=== PATIENT | male | born 1935 | race Caucasian/White ===

== ENCOUNTER 2018-10-08 19:09 | Inpatient (IN) ==
[2018-10-08 19:47] LABS: Basophils # 0.1 K/mcL (0.0-0.2); Basophils % 0.3 %; Eosinophils % 0.1 %; Hematocrit 44.1 % (37.5-50.1); Hemoglobin 13.8 g/dL (12.9-16.9); Immature Granulocytes % 0.5 % (0-4); Lymphocytes # 1.2 K/mcL (0.6-4.6); Lymphocytes % 6.5 %; Mean Corpuscular HGB Conc 31.3 g/dL (31.6-35.5); Mean Corpuscular Hemoglobin 28.5 pg (28.0-33.3); Mean Corpuscular Volume 90.9 fL (83.0-100.0); Mean Platelet Volume 10.5 fL (9.4-12.4); Monocytes # 1.1 K/mcL (0.0-1.3); Monocytes % 6.3 %; Neutrophils # 15.6 K/mcL (1.6-8.9); Platelet Count 263 K/mcL (140-400); Red Blood Count 4.85 M/mcL (4.19-5.50); Segmented Neutrophils % 86.3 %
[2018-10-08] MEDS ORDERED: Ipratropium/Albuterol Neb 3 ML IH ONE (20:06)
[2018-10-08] MEDS ORDERED: Levofloxacin 750 MG/150 ML 750 MG/150 ML BAG IVPB ONE (20:06)
[2018-10-08] MEDS ORDERED: 0.9 % Sodium Chloride 1,000 ML IVC ONE (20:06)
[2018-10-08 20:09] LABS: BUN/Creatinine Ratio 24 (6-26); Blood Urea Nitrogen 25 mg/dL (8-23); Calcium 9.5 mg/dL (8.6-10.3); Carbon Dioxide 30 mEq/L (23-29); Chloride 100 mEq/L (98-107); Glucose 140 mg/dL (70-105); Osmolality,Calculated 297 (280-300); Potassium 4.1 mEq/L (3.5-5.1); Sodium 140 mEq/L (136-145); Troponin I 0.04 ng/mL (< 0.04); eGFR For Non-African Americans > 60 (> 60)
--- NOTE | 2018-10-08 20:09 | Emergency Department Note ---
Disposition Clinical Impression: Acute exacerbation of chronic obstructive airways disease Disposition: Admitted As Inpatient Condition: Fair Referrals: NONE,PCP [Primary Care Provider] - Forms: ED Satisfaction Letter Time of Disposition: 23:37 SOB HPI - General Chief Complaint: ED Shortness of Breath/Dyspnea Stated Complaint: Difficulty breathing Time Seen by Provider: 10/08/18 20:01 Source: patient, family, EMS Mode of arrival: EMS Limitations: no limitations Nursing Notes Reviewed: Yes Vital Signs Reviewed: Yes - History of Present Illness Pt Subjective Complaint: shortness of breath Onset (ago): day(s) (Past couple days.) Context: smoke/fume exposure (Bug spray sprayed around his house although shortness of breath started getting worse before that) Severity: severe Consistency/Duration: constant, gradually worsening Improves with: nothing (Patient has been increasing his oxygen at home without relief.) Worsens with: exertion Known history of: COPD Associated symptoms: Reports: cough Treatment prior to arrival: oxygen, bronchodilator, other (Steroids per EMS) Cough present: Yes - Related Data Home oxygen amount: 3 liters Previous Rx's Medication Instructions Recorded Ciprofloxacin HCl [Cipro] 500 mg PO Q12H #20 tablet 12/25/17 Michael/Poly/HC *EAR* SUSP 4 ml LEFT EAR QID #1 drops.susp 12/25/17 [Cortisporin *EAR* SUSP] Allergies Allergy/AdvReac Type Severity Reaction Status Date / Time Unable to Assess Allergy Unverified 10/08/18 19:22 All systems ED: reviewed and negative except as stated. Constitutional: Denies: fever, chills ENT ED: Denies: ear pain, throat pain, congestion Cardiovascular: Denies: chest pain, palpitations Respiratory: Reports: cough, dyspnea, wheezes Gastrointestinal: Denies: abdominal pain, nausea, vomiting, diarrhea Integumentary: Denies: rash Neurological: Denies: headache Past Medical History - Past Medical History Attestation: Yes The following information was validated with the patient. Source: patient, old records reviewed, obtained from family, nursing notes reviewed Medical history: Reports: non-contributory, COPD, hyperlipidemia Psychiatric history: Reports: no psych history - Social History Smoking Status: Former smoker Smokeless Tobacco Status: No Alcohol use: Reports: none Drug use: Reports: none Physical Exam - General Limitations: no limitations General appearance: alert, in distress - Head Head exam: atraumatic, normocephalic, normal inspection - Eye Eye exam: Present: normal appearance, PERRL, EOMI. Absent: scleral icterus, conjunctival injection - ENT ENT exam: normal exam, normal oropharynx, mucous membranes dry, normal external ear exam - Neck Neck exam: Present: normal inspection, full ROM, trachea midline. Absent: meningismus - Chest Chest inspection: Present: normal inspection, symmetric chest wall rise. Absent: tenderness - Respiratory Respiratory exam: Present: respiratory distress (Tachypnea), wheezes ( scattered bilaterally) - Cardiovascular Cardiovascular exam: Present: regular rate, normal rhythm, normal heart sounds - Abdominal Exam Abdominal exam: Present: soft, Non-Tender, normal bowel sounds - Extremities Exam Extremities exam: Present: normal inspection. Absent: tenderness, pedal edema, calf tenderness - Neurological Exam Neurological exam: Present: alert, oriented X3 - Psychiatric Psychiatric exam: Present: normal affect, normal mood - Skin Skin exam: Present: warm, dry. Absent: rash Course Course Narrative: Patient presents for shortness of breath. Long-standing history of COPD and on home oxygen. Suddenly started getting short of breath and sounds like some he was using some bug spray the house and I suspect that this is triggered things. He does not have any significant infectious disease symptoms although he has been coughing. There is no fever. His chest x-ray was clear without any evidence of infectious problem. He got breathing treatments and steroids by the squad. I am and even more breathing treatments. I will start him on some Levaquin. 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 - Reevaluation(s) Reevaluation #1: Patient feels better. Chest x-ray looks clear. So think is a bronchitis with bronchospasm. COPD exacerbation. He did have a slightly elevated troponin of 0.04. I repeated 3 hours later and it was 0.06. I think this is still all related to COPD exacerbation. I called the hospitalist and discussed the case with him. He is happy to accept the patient here for further evaluation. We are giving the patient Levaquin. He has had doing nebs and Solu-Medrol. He has had aspirin. Time: 23:37 - Consultations Consultation #1: Dr. Wilder, hospitalist - I discussed case with the hospice. He is except patient for admission. Time: 23:37 Vital Signs Temperature 98.2 F 10/08/18 19:10 Pulse Rate 98 10/08/18 19:10 Respiratory Rate 29 10/08/18 19:10 Blood Pressure 168/69 10/08/18 19:10 O2 Sat by Pulse Oximetry 93 10/08/18 19:10 Temperature 98.2 F 10/08/18 22:38 Pulse Rate 88 10/08/18 23:19 Respiratory Rate 28 10/08/18 23:19 Blood Pressure 149/67 10/08/18 23:19 O2 Sat by Pulse Oximetry 93 10/08/18 23:19 Oxygen Delivery Oxygen Delivery Nasal Cannula Shortness of Breath/Dyspnea - Medical Records Medical records reviewed: Yes I reviewed the patient's medical records. - Lab Data Lab results reviewed: Yes I reviewed the patient's lab results. Result diagrams: 10/08/18 19:30 10/08/18 19:30 Lab Results 10/08/18 10/08/18 10/08/18 Range/Units 19:30 19:30 19:30 WBC 18.1 H (4.3-11.1) K/mcL RBC 4.85 (4.19-5.50) M/mcL Hgb 13.8 (12.9-16.9) g/dL Hct 44.1 (37.5-50.1) % MCV 90.9 (83.0-100.0) fL MCH 28.5 (28.0-33.3) pg MCHC 31.3 L (31.6-35.5) g/dL RDW 14.0 (11.5-14.5) % Plt Count 263 (140-400) K/mcL MPV 10.5 (9.4-12.4) fL Immature Gran % 0.5 (0-4) % Seg Neutrophils % 86.3 % Lymphocytes % 6.5 % Monocytes % 6.3 % Eosinophils % 0.1 % Basophils % 0.3 % Neutrophils # 15.6 H (1.6-8.9) K/mcL Lymphocytes # 1.2 (0.6-4.6) K/mcL Monocytes # 1.1 (0.0-1.3) K/mcL Eosinophils # 0.0 (0.0-0.6) K/mcL Basophils # 0.1 (0.0-0.2) K/mcL Sample Site ABG pH (7.32-7.45) pH Units ABG pCO2 (35-45) mmHg ABG pO2 (85-104) mmHg ABG HCO3 (21-27) mEq/L ABG Total CO2 (20-26) mEq/L ABG O2 Saturation (95-98) % ABG Base Excess (-2 to 3) mEq/L Rufus Test O2 Delivery Device Inspired O2 (1-15=lpm [id number]=%) Sodium 140 (136-145) mEq/L Potassium 4.1 (3.5-5.1) mEq/L Chloride 100 (98-107) mEq/L Carbon Dioxide 30 H (23-29) mEq/L BUN 25 H (8-23) mg/dL Creatinine 1.03 (0.70-1.30) mg/dL Est GFR ( Amer) > 60 (> 60) Est GFR (Non-Af Amer) > 60 (> 60) BUN/Creatinine Ratio 24 (6-26) Glucose 140 H (70-105) mg/dL Calculated Osmolality 297 (280-300) Lactic Acid 1.4 (0.5-2.2) mmol/L Calcium 9.5 (8.6-10.3) mg/dL Troponin I 0.04 H* (< 0.04) ng/mL B-Natriuretic Peptide (Less than 100) pg/mL 10/08/18 10/08/18 10/08/18 Range/Units 19:30 21:07 22:34 WBC (4.3-11.1) K/mcL RBC (4.19-5.50) M/mcL Hgb (12.9-16.9) g/dL Hct (37.5-50.1) % MCV (83.0-100.0) fL MCH (28.0-33.3) pg MCHC (31.6-35.5) g/dL RDW (11.5-14.5) % Plt Count (140-400) K/mcL MPV (9.4-12.4) fL Immature Gran % (0-4) % Seg Neutrophils % % Lymphocytes % % Monocytes % % Eosinophils % % Basophils % % Neutrophils # (1.6-8.9) K/mcL Lymphocytes # (0.6-4.6) K/mcL Monocytes # (0.0-1.3) K/mcL Eosinophils # (0.0-0.6) K/mcL Basophils # (0.0-0.2) K/mcL Sample Site R Radial ABG pH 7.39 (7.32-7.45) pH Units ABG pCO2 43 (35-45) mmHg ABG pO2 51 L (85-104) mmHg ABG HCO3 26 (21-27) mEq/L ABG Total CO2 27 H (20-26) mEq/L ABG O2 Saturation 85 L (95-98) % ABG Base Excess 0 (-2 to 3) mEq/L Rufus Test Positive O2 Delivery Device Cannula Inspired O2 4.0 (1-15=lpm [id number]=%) Sodium (136-145) mEq/L Potassium (3.5-5.1) mEq/L Chloride (98-107) mEq/L Carbon Dioxide (23-29) mEq/L BUN (8-23) mg/dL Creatinine (0.70-1.30) mg/dL Est GFR ( Amer) (> 60) Est GFR (Non-Af Amer) (> 60) BUN/Creatinine Ratio (6-26) Glucose (70-105) mg/dL Calculated Osmolality (280-300) Lactic Acid (0.5-2.2) mmol/L Calcium (8.6-10.3) mg/dL Troponin I 0.06 H* (< 0.04) ng/mL B-Natriuretic Peptide 186 H (Less than 100) pg/mL - Radiology Data Radiology results reviewed: Yes I reviewed the patient's radiology results. - EKG Data EKG attestation: Yes I reviewed and interpreted this EKG. EKG results narrative: Twelve-lead EKG performed at 1920 3 PM. Ordered, reviewed and interpreted by ED physician shows sinus rhythm at a rate of 98. Right bundle branch block. Normal axis. Good hour progression across precordium. No acute ischemic changes. Intervals within normal limits.
[2018-10-08 21:13] LABS: ABG Base Excess 0 mEq/L (-2 to 3); ABG HCO3 26 mEq/L (21-27); ABG Oxygen Saturation 85 % (95-98); ABG PCO2 43 mmHg (35-45); ABG PH 7.39 pH Units (7.32-7.45); ABG PO2 51 mmHg (85-104); ABG TCO2 27 mEq/L (20-26)
[2018-10-08] MEDS ORDERED: Aspirin 325 MG TABLET PO ONE (23:24)
[2018-10-09] MEDS ORDERED: Naloxone 0.4 MG/ML INJ IVP PRN (01:13)
[2018-10-09] MEDS: Ipratropium/Albuterol Neb 3 ML IH SCH ×7 (01:13→23:16)
[2018-10-09] MEDS ORDERED: MethylPREDNISolone 40 MG/ML VIAL IVP ONE (01:13)
[2018-10-09] MEDS ORDERED: 0.9 % Sodium Chloride 1,000 ML IVC SCH (01:13)
[2018-10-09] MEDS ORDERED: Permethrin Cream Rinse 60 ML LIQUID TP ONE (01:14)
[2018-10-09] MEDS: Levofloxacin 750 MG/150 ML 750 MG/150 ML BAG IVPB SCH (08:54)
[2018-10-09] MEDS: Aspirin 81 MG TAB.CHEW PO SCH (08:55)
--- NOTE | 2018-10-09 10:56 | Internal Med History&Physical ---
Date of Encounter: 10/09/18 Time of Encounter: 10:10 Assessment and Plan (1) Acute exacerbation of chronic obstructive airways disease Current visit: Yes Status: Acute He has been started on IV Levaquin and Solu-Medrol. Chest CT will be done to further evaluate. (2) Parkinsons disease Current visit: Yes Status: Acute He denies previous diagnosis of this. I do not feel he needs medication at this time. He will have physical therapy and occupational therapy evaluations to assess balance, gait, etc. (3) Weakness Current visit: Yes Status: Acute He will have PT and OT evaluation (4) History of aortic aneurysm repair Current visit: Yes Status: Acute CT of abdomen pelvis be done to follow-up on previous surgical repair. (5) Sinus drainage Current visit: Yes Status: Acute Head CT will be done to further evaluate. Internal Medicine - H&P: HPI Chief complaint: Dyspnea Admitted From: Emergency Dept Plans for Post Hospital Care: Home History of present illness: Mr. Graham is a 83 year old male who came to emergency room stating he had increased dyspnea over the past 2 days. He denies pain vomiting or diarrhea. He was evaluated in emergency room and was felt to have exacerbation of COPD. He was admitted to [facility] floor for ongoing care needs. Respiratory history is significant for having smoked from age [age] up to 2 packs per day. He does not recall having PFTs but has presumably been diagnosed with COPD since he reports using oxygen home 21/01. He reports he has had significant sinus drainage for approximately 70 years. 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 Review of systems: Gen.: He states his weight has been stable for the past year Cardiovascular: He denies hypertension IA heart failure angina DVT or pulmonary embolus. He reports abdominal aortic aneurysm repair over 20 years ago. Respiratory: As per history of present illness GI: He had a kidney stone remotely without recurrence. He denies other dis orders of his kidneys bladder or prostate Neurologic: He denies large distribution strokes or seizures. Endocrine: He has hyperlipidemia but denies diabetes or thyroid disease Hematology/oncology: He denies blood disorders cancers or anemia Psychiatric: He denies anxiety depression or other mental health issues [place] skeletal: He denies arthritis gout or other bone joint or muscle disorders. - Constitutional Vitals: Temp Pulse Resp BP Pulse Ox 97.4 F L 80 20 140/59 90 10/09/18 06:34 10/09/18 06:34 10/09/18 08:50 10/09/18 06:34 10/09/18 08:50 Exam: Gen.: He is a well-developed well-nourished male resting comfortably in bed who appears slightly dyspneic. HEENT: Head is atraumatic and normocephalic. Eyes: EOMI. There is no scleral icterus. Mouth: Mucosa is moist. Neck: Supple and nontender. There is no thyromegaly or adenopathy noted. Heart: Regular without murmurs gallops or ectopics Lungs: No wheezes or crackles are heard. Abdomen: Soft and nontender. No masses or guarding are noted. Extremities: There is no cyanosis edema or clubbing noted. Dorsalis pedis and posttibial pulses are trace to 1+ palpable bilaterally. Neurologic: Mental status: He is talkative and a good historian. Cranial nerves: Smile is symmetric. Forehead wrinkles bilaterally. Tongue protrudes midline. EOMI. Motor: He has cogwheeling and rigidity on passive range of motion of his wrists and elbows. He has slight resting tremor of his mandible. There is no pronator drift. Cerebellar: Finger to nose is intact bilaterally. Skin: Warm and dry. Internal Med - H&P Results - Labs CBC & Chem 7: 10/08/18 19:30 10/08/18 19:30 Labs: Short CBC 10/08/18 Range/Units 19:30 WBC 18.1 H (4.3-11.1) K/mcL Hgb 13.8 (12.9-16.9) g/dL Hct 44.1 (37.5-50.1) % Plt Count 263 (140-400) K/mcL Neutrophils # 15.6 H (1.6-8.9) K/mcL BMP 10/08/18 19:30 Sodium 140 Potassium 4.1 Chloride 100 Carbon Dioxide 30 H BUN 25 H Creatinine 1.03 Glucose 140 H Calcium 9.5 Cardiac Enzymes 10/08/18 10/08/18 10/09/18 Range/Units 19:30 22:34 06:59 Troponin I 0.04 H* 0.06 H* 0.06 H* (< 0.04) ng/mL - ABG Interpretation ABG results: 10/08/18 21:07 ABG pH 7.39 ABG pCO2 43 ABG pO2 51 L ABG HCO3 26 ABG Total CO2 27 H ABG O2 Saturation 85 L ABG Base Excess 0 - Impressions ITS Impressions Chest X-Ray 10/08/18 19:26 IMPRESSION: Pulmonary sequela typical of that seen with smoking, including possible emphysema; correlate with clinical history. No definite acute pulmonary disease. Calcific atherosclerotic disease aorta. D/ / Kyle Epstein / Kyle Epstein Interpreting Provider: Kyle Epstein
--- NOTE | 2018-10-09 11:29 | Electrocardiograph Report ---
[place] [id number] Test Date: 2018-10-08 Pat Name: Rayshawn Graham Department: EDP-11 Room: [facility] Gender: M Application Internship: : 1935 Requested By: Deonte Eric Order Number: [id number] Reading MD: Suleman Garcia Measurements Intervals [place] Rate: 98 P: 85 DE: 156 QRS: -71 QRSD: 146 T: 76 QT: 396 QTc: 506 Interpretive Statements Sinus rhythm RBBB and LAFB Electronically Signed On 10-09-2018 11:28:02 EDT by Suleman Garcia
[2018-10-10] MEDS: Ipratropium/Albuterol Neb 3 ML IH SCH ×6 (04:54→23:13)
[2018-10-10 05:45] LABS: Hematocrit 35.6 % (37.5-50.1); Hemoglobin 11.4 g/dL (12.9-16.9); Immature Granulocytes % 0.7 % (0-4); Lymphocytes # 0.4 K/mcL (0.6-4.6); Lymphocytes % 3.3 %; Mean Corpuscular Hemoglobin 28.7 pg (28.0-33.3); Mean Corpuscular Volume 89.7 fL (83.0-100.0); Monocytes # 0.5 K/mcL (0.0-1.3); Monocytes % 4.3 %; Neutrophils # 10.7 K/mcL (1.6-8.9); Platelet Count 223 K/mcL (140-400); Red Blood Count 3.97 M/mcL (4.19-5.50); Red Cell Distribution Width 13.9 % (11.5-14.5); Segmented Neutrophils % 91.7 %
[2018-10-10 06:06] LABS: Alanine Aminotransferase 11 Units/L (7-52); Albumin 3.1 g/dL (3.5-5.7); Albumin/Globulin Ratio 0.8 (1.1-2.2); Alkaline Phosphatase 78 Units/L (34-104); Aspartate Amino Transferase 21 Units/L (13-39); BUN/Creatinine Ratio 33 (6-26); Bilirubin,Total 0.4 mg/dL (0.3-1.0); Blood Urea Nitrogen 27 mg/dL (8-23); Calcium 8.8 mg/dL (8.6-10.3); Carbon Dioxide 28 mEq/L (23-29); Chloride 106 mEq/L (98-107); Globulin 3.7 g/dL (2.4-3.5); Glucose 147 mg/dL (70-105); Osmolality,Calculated 300 (280-300); Sodium 141 mEq/L (136-145); Total Protein 6.8 g/dL (6.4-8.9); eGFR For Non-African Americans > 60 (> 60)
--- NOTE | 2018-10-10 09:57 | Internal Med Progress Note ---
Date of Encounter: 10/10/18 Time of Encounter: 09:45 - Assessment and plan (1) Acute exacerbation of chronic obstructive airways disease Current Visit: Yes Status: Acute Assessment and plan: October 10. Continue Levaquin and DuoNebs. Add lactobacillus. Anticipate discharge home tomorrow if stable. (2) Parkinsons disease Current Visit: Yes Status: Acute Assessment and plan: October 10. Continue therapy intervention. (3) Weakness Current Visit: Yes Status: Acute Assessment and plan: October 10. Continue therapy intervention. (4) History of aortic aneurysm repair Current Visit: Yes Status: Acute Assessment and plan: October 10. Abdominal/pelvic CT showed proximal aortic aneurysmal dilatation measuring up to 4.2 cm. He had bilateral common iliac artery dilatation distal to the graft measuring 4.4 cm on the left and 2.6 cm on the right. 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 He declined offer of transfer for vascular surgery to further evaluate. (5) Sinus drainage Current Visit: Yes Status: Acute Assessment and plan: October 10. Head CT was unremarkable. (6) Anemia Current Visit: Yes Status: Acute Assessment and plan: October 10. Hemoglobin has decreased to 11.4. Order anemia testing. Qualifiers: Anemia type: unspecified type Qualified Code(s): D64.9 - Anemia, unspecified (7) Lung mass Current Visit: Yes Status: Acute Assessment and plan: October 10. Chest CT showed 2.9 cm right upper lung mass suspicious for primary lung cancer. The patient declined offer to transfer for further evaluation/treatment. - Subjective Interval history: October 10. He has no new complaints and feels better overall. I discussed the chest CT report with him yesterday afternoon and offered him transfer to another facility for further evaluation of the lung mass. He stated he "wanted to think about it". He states today he does not wish referral for aggressive treatment. - Constitutional Vitals: Temp Pulse Resp BP Pulse Ox 97.8 F 80 22 117/61 95 10/10/18 07:10 10/10/18 07:10 10/10/18 07:47 10/10/18 07:10 10/10/18 07:47 Exam: He is resting comfortably in bed and appears in no acute distress. His conversation is completely appropriate. I reviewed his medications and lab results. Internal Medicine: Result - Labs CBC & Chem 7: 10/10/18 04:35 10/10/18 04:35 Labs: Short CBC 10/10/18 Range/Units 04:35 WBC 11.7 H (4.3-11.1) K/mcL Hgb 11.4 L D (12.9-16.9) g/dL Hct 35.6 L (37.5-50.1) % Plt Count 223 (140-400) K/mcL Neutrophils # 10.7 H (1.6-8.9) K/mcL BMP 10/10/18 04:35 Sodium 141 Potassium 4.0 Chloride 106 Carbon Dioxide 28 BUN 27 H Creatinine 0.83 Glucose 147 H Calcium 8.8 Cardiac Enzymes 10/09/18 Range/Units 13:01 Troponin I 0.05 H* (< 0.04) ng/mL Liver Function 10/10/18 Range/Units 04:35 Total Bilirubin 0.4 (0.3-1.0) mg/dL AST 21 (13-39) Units/L ALT 11 (7-52) Units/L Alkaline Phosphatase 78 (34-104) Units/L Albumin 3.1 L (3.5-5.7) g/dL - ABG Interpretation ABG results: ABG ABG pH 7.39 pH Units (7.32-7.45) 10/08/18 21:07 ABG pCO2 43 mmHg (35-45) 10/08/18 21:07 ABG pO2 51 mmHg (85-104) L 10/08/18 21:07 ABG O2 Saturation 85 % (95-98) L 10/08/18 21:07 - Impressions Impressions Head CT 10/09/18 10:49 IMPRESSION: No acute intracranial abnormality. There is age-appropriate cerebral atrophy with evidence of chronic periventricular small vessel ischemic disease. D/ / Leandro Morales MD / Leandro Morales MD Interpreting Provider: Leandro Morales MD Abdomen/Pelvis CT 10/09/18 10:50 IMPRESSION: 1. Motion artifact limits exam. 2. Emphysematous changes at the lung bases with patchy opacities that could represent atelectasis or pneumonia. 3. Postoperative changes of graft repair of the abdominal aorta and bilateral iliac arteries. Along the proximal margin of the graft, there is aneurysmal dilation of the [place] aorta which measures up to 4.2 cm. There is also aneurysmal dilation of the bilateral common iliac arteries which measure up to 4.4 cm on the left and 2.6 cm on the right. Evaluation for graft patency and endoleak is precluded by lack of intravenous contrast. 4. Aneurysmal dilation in the distal left common femoral artery with extension into the proximal left superficial femoral artery which measures up to 3.3 x 2.9 cm. This abnormality is located along the distal margin of the graft, and may be perfused. Further evaluation with CT angiogram versus vascular ultrasound is recommended. 5. Right-sided nonobstructive renal calculi. D/ / 10/09/2018 11:53:09 Dannie Olmstead MD / [facility] Interpreting Provider: Dannie Olmstead MD Chest CT 10/09/18 10:50 IMPRESSION: 1. Mild ectasia of the thoracic aorta without evidence of discrete aneurysm. 2. Dominant 2.9 cm right upper lobe mass compatible with primary lung carcinoma until proven otherwise. PET-CT and/or tissue sampling recommended for further evaluation. 3. No convincing evidence of intrathoracic metastatic disease on this unenhanced study. Contrast-enhanced study is suggested for further evaluation. 4. Severe emphysema. Atherosclerotic vascular calcifications also noted. 5. Incidental nonobstructing upper pole right kidney stone. D/ / Leandro Morales MD / Leandro Morales MD Interpreting Provider: Leandro Morales MD Consult Discharge Plan - Plan Referrals: NONE,PCP [Primary Care Provider] - 1 week
[2018-10-10] MEDS: Aspirin 81 MG TAB.CHEW PO SCH (10:12)
[2018-10-10] MEDS: Levofloxacin 750 MG/150 ML 750 MG/150 ML BAG IVPB SCH (10:13)
[2018-10-10 13:29] LABS: % Iron Saturation 34 % (20-55); Iron 81 mcg/dL (65-175); Transferrin 170 mg/dL (203-362)
[2018-10-10 13:46] LABS: Ferritin 524 ng/mL (20-250)
[2018-10-10 14:00] LABS: Folate 12.1 ng/mL (3.0-16.0)
[2018-10-10] MEDS: Lactobacillus 1 EACH CAP.SPRINK PO SCH (20:25)
[2018-10-11] MEDS: Ipratropium/Albuterol Neb 3 ML IH SCH ×4 (04:06→15:50)
[2018-10-11 05:25] LABS: Basophils % 0.1 %; Eosinophils # 0.1 K/mcL (0.0-0.6); Eosinophils % 0.7 %; Hematocrit 36.5 % (37.5-50.1); Hemoglobin 11.6 g/dL (12.9-16.9); Immature Granulocytes % 0.9 % (0-4); Lymphocytes % 9.3 %; Mean Corpuscular HGB Conc 31.8 g/dL (31.6-35.5); Mean Corpuscular Hemoglobin 28.2 pg (28.0-33.3); Mean Corpuscular Volume 88.8 fL (83.0-100.0); Mean Platelet Volume 10.5 fL (9.4-12.4); Monocytes # 0.7 K/mcL (0.0-1.3); Monocytes % 6.2 %; Neutrophils # 8.7 K/mcL (1.6-8.9); Platelet Count 227 K/mcL (140-400); Red Blood Count 4.11 M/mcL (4.19-5.50); Segmented Neutrophils % 82.8 %
[2018-10-11] MEDS: Lactobacillus 1 EACH CAP.SPRINK PO SCH ×2 (08:35→20:48)
[2018-10-11] MEDS: Aspirin 81 MG TAB.CHEW PO SCH (08:35)
[2018-10-11] MEDS: Levofloxacin 750 MG/150 ML 750 MG/150 ML BAG IVPB SCH (08:35)
--- NOTE | 2018-10-11 17:22 | Internal Med Progress Note ---
Date of Encounter: 10/11/18 Time of Encounter: 17:15 - Assessment and plan (1) Acute exacerbation of chronic obstructive airways disease Current Visit: Yes Status: Acute Assessment and plan: October 10. Continue Levaquin and DuoNebs. Add lactobacillus. Anticipate discharge home tomorrow if stable. October 11. Patient has agreed to go to a local SNF for ongoing care needs. Continue Levaquin and DuoNebs with lactobacillus. (2) Parkinsons disease Current Visit: Yes Status: Acute Assessment and plan: October 10. Continue therapy intervention. (3) Weakness Current Visit: Yes Status: Acute Assessment and plan: October 10. Continue therapy intervention. (4) History of aortic aneurysm repair Current Visit: Yes Status: Acute Assessment and plan: October 10. Abdominal/pelvic CT showed proximal aortic aneurysmal dilatation measuring up to 4.2 cm. He had bilateral common iliac artery dilatation distal to the graft measuring 4.4 cm on the left and 2.6 cm on the right. 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 He declined offer of transfer for vascular surgery to further evaluate. (5) Sinus drainage Current Visit: Yes Status: Acute Assessment and plan: October 10. Head CT was unremarkable. (6) Anemia Current Visit: Yes Status: Acute Assessment and plan: October 10. Hemoglobin has decreased to 11.4. Order anemia testing. October 11. Anemia testing showed iron 81, transferrin saturation 34%, transferrin 170, ferritin 524, B12 160, and folate 12.1. He will be given a B12 injection and start oral B12 supplement. Hemoglobin stable today at 11.6. Qualifiers: Anemia type: unspecified type Qualified Code(s): D64.9 - Anemia, unspecified (7) Lung mass Current Visit: Yes Status: Acute Assessment and plan: October 10. Chest CT showed 2.9 cm right upper lung mass suspicious for primary lung cancer. The patient declined offer to transfer for further evaluation/treatment. - Subjective Interval history: October 10. He has no new complaints and feels better overall. I discussed the chest CT report with him yesterday afternoon and offered him transfer to another facility for further evaluation of the lung mass. He stated he "wanted to think about it". He states today he does not wish referral for aggressive treatment. October 11. He has no new complaints. - Constitutional Vitals: Temp Pulse Resp BP Pulse Ox 97.5 F L 93 18 124/79 93 10/11/18 14:08 10/11/18 14:08 10/11/18 15:50 10/11/18 14:08 10/11/18 15:50 Exam: He is sitting in a chair at bedside resting comfortably. His affect is bright and cheerful. I reviewed his medications and lab results. Internal Medicine: Result - Labs CBC & Chem 7: 10/11/18 04:40 10/10/18 04:35 Labs: Short CBC 10/11/18 Range/Units 04:40 WBC 10.5 (4.3-11.1) K/mcL Hgb 11.6 L (12.9-16.9) g/dL Hct 36.5 L (37.5-50.1) % Plt Count 227 (140-400) K/mcL Neutrophils # 8.7 (1.6-8.9) K/mcL - ABG Interpretation ABG results: ABG ABG pH 7.39 pH Units (7.32-7.45) 10/08/18 21:07 ABG pCO2 43 mmHg (35-45) 10/08/18 21:07 ABG pO2 51 mmHg (85-104) L 10/08/18 21:07 ABG O2 Saturation 85 % (95-98) L 10/08/18 21:07 - VTE Documentation of Mechanical Device: Graduated compression elastic hosiery Consult Discharge Plan - Plan Referrals: NONE,PCP [Primary Care Provider] - 1 week
[2018-10-11] MEDS ORDERED: Cyanocobalamin (B-12) 1,000 MCG/ML VIAL IM ONE (17:26)
[2018-10-11] MEDS ORDERED: Ipratropium/Albuterol Neb 3 ML IH PRN (17:27)
[2018-10-12] MEDS: Aspirin 81 MG TAB.CHEW PO SCH (08:56)
[2018-10-12] MEDS: Lactobacillus 1 EACH CAP.SPRINK PO SCH ×2 (08:56→19:55)
[2018-10-12] MEDS: Levofloxacin 750 MG/150 ML 750 MG/150 ML BAG IVPB SCH (08:56)
[2018-10-12] MEDS: Cyanocobalamin (B-12) 1,000 MCG TABLET PO SCH (09:12)
--- NOTE | 2018-10-12 13:12 | Internal Med Progress Note ---
Date of Encounter: 10/12/18 Time of Encounter: 13:03 - Assessment and plan (1) Acute exacerbation of chronic obstructive airways disease Current Visit: Yes Status: Acute Assessment and plan: October 10. Continue Levaquin and DuoNebs. Add lactobacillus. Anticipate discharge home tomorrow if stable. October 11. Patient has agreed to go to a local SNF for ongoing care needs. Continue Levaquin and DuoNebs with lactobacillus. (2) Parkinsons disease Current Visit: Yes Status: Acute Assessment and plan: October 10. Continue therapy intervention. (3) Weakness Current Visit: Yes Status: Acute Assessment and plan: October 10. Continue therapy intervention. (4) History of aortic aneurysm repair Current Visit: Yes Status: Acute Assessment and plan: October 10. Abdominal/pelvic CT showed proximal aortic aneurysmal dilatation measuring up to 4.2 cm. He had bilateral common iliac artery dilatation distal to the graft measuring 4.4 cm on the left and 2.6 cm on the right. 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 He declined offer of transfer for vascular surgery to further evaluate. (5) Sinus drainage Current Visit: Yes Status: Acute Assessment and plan: October 10. Head CT was unremarkable. (6) Anemia Current Visit: Yes Status: Acute Assessment and plan: October 10. Hemoglobin has decreased to 11.4. Order anemia testing. October 11. Anemia testing showed iron 81, transferrin saturation 34%, transferrin 170, ferritin 524, B12 160, and folate 12.1. He will be given a B12 injection and start oral B12 supplement. Hemoglobin stable today at 11.6. October 12. Recheck labs in a.m. Qualifiers: Anemia type: unspecified type Qualified Code(s): D64.9 - Anemia, unspecified (7) Lung mass Current Visit: Yes Status: Acute Assessment and plan: October 10. Chest CT showed 2.9 cm right upper lung mass suspicious for primary lung cancer. The patient declined offer to transfer for further evaluation/treatment. (8) Nausea & vomiting Current Visit: Yes Status: Acute Assessment and plan: October 12. Order Zofran and Pepto-Bismol as needed. Qualifiers: Vomiting type: unspecified Vomiting Intractability: non-intractable Qualified Code(s): R11.2 - Nausea with vomiting, unspecified - Subjective Interval history: October 10. He has no new complaints and feels better overall. I discussed the chest CT report with him yesterday afternoon and offered him transfer to another facility for further evaluation of the lung mass. He stated he "wanted to think about it". He states today he does not wish referral for aggressive treatment. October 11. He has no new complaints. October 12. He has nausea and vomited earlier today. He does not have significant pain. - Constitutional Vitals: Temp Pulse Resp BP Pulse Ox 97.6 F 72 26 124/51 92 10/12/18 10:15 10/12/18 10:15 10/12/18 10:15 10/12/18 10:15 10/12/18 10:15 Exam: He is resting comfortably in a chair at bedside and appears in no acute distress. His affect is overall cheerful. I reviewed his medications and lab results. Internal Medicine: Result - Labs CBC & Chem 7: 10/11/18 04:40 10/10/18 04:35 - ABG Interpretation ABG results: ABG ABG pH 7.39 pH Units (7.32-7.45) 10/08/18 21:07 ABG pCO2 43 mmHg (35-45) 10/08/18 21:07 ABG pO2 51 mmHg (85-104) L 10/08/18 21:07 ABG O2 Saturation 85 % (95-98) L 10/08/18 21:07 - VTE Documentation of Mechanical Device: Graduated compression elastic hosiery Consult Discharge Plan - Plan Referrals: NONE,PCP [Primary Care Provider] - 1 week
[2018-10-12] MEDS ORDERED: Ondansetron 4 MG/2 ML VIAL IVP PRN (13:13)
[2018-10-12] MEDS ORDERED: Bismuth Subsalicylate 120 ML ORAL SUSPENSION PO PRN (13:14)
[2018-10-13 05:51] LABS: Basophils % 0.2 %; Eosinophils # 0.3 K/mcL (0.0-0.6); Eosinophils % 2.8 %; Hematocrit 37.4 % (37.5-50.1); Immature Granulocytes % 4.4 % (0-4); Lymphocytes # 1.4 K/mcL (0.6-4.6); Lymphocytes % 12.7 %; Mean Corpuscular HGB Conc 32.1 g/dL (31.6-35.5); Mean Corpuscular Hemoglobin 28.3 pg (28.0-33.3); Mean Corpuscular Volume 88.2 fL (83.0-100.0); Mean Platelet Volume 10.5 fL (9.4-12.4); Monocytes # 0.9 K/mcL (0.0-1.3); Monocytes % 8.6 %; Neutrophils # 7.6 K/mcL (1.6-8.9); Platelet Count 254 K/mcL (140-400); Red Blood Count 4.24 M/mcL (4.19-5.50); Red Cell Distribution Width 14.2 % (11.5-14.5); Segmented Neutrophils % 71.3 %
[2018-10-13 06:14] LABS: BUN/Creatinine Ratio 26 (6-26); Blood Urea Nitrogen 23 mg/dL (8-23); Calcium 8.8 mg/dL (8.6-10.3); Carbon Dioxide 31 mEq/L (23-29); Chloride 100 mEq/L (98-107); Glucose 97 mg/dL (70-105); Osmolality,Calculated 286 (280-300); Sodium 136 mEq/L (136-145); eGFR For Non-African Americans > 60 (> 60)
[2018-10-13 07:16] LABS: Anisocytosis 1+ (Not Present); Platelet Estimate Normal (Normal); Polychromasia 1+ (Not Present); Toxic Granulation Present (Not Present)
[2018-10-13] MEDS: Aspirin 81 MG TAB.CHEW PO SCH (10:08)
[2018-10-13] MEDS: Lactobacillus 1 EACH CAP.SPRINK PO SCH ×2 (10:08→21:43)
[2018-10-13] MEDS: Cyanocobalamin (B-12) 1,000 MCG TABLET PO SCH (10:08)
[2018-10-13] MEDS: Levofloxacin 750 MG/150 ML 750 MG/150 ML BAG IVPB SCH (10:08)
--- NOTE | 2018-10-13 17:35 | Internal Med Progress Note ---
Date of Encounter: 10/13/18 Time of Encounter: 17:25 - Assessment and plan (1) Acute exacerbation of chronic obstructive airways disease Current Visit: Yes Status: Acute Assessment and plan: October 10. Continue Levaquin and DuoNebs. Add lactobacillus. Anticipate discharge home tomorrow if stable. October 11. Patient has agreed to go to a local SNF for ongoing care needs. Continue Levaquin and DuoNebs with lactobacillus. (2) Parkinsons disease Current Visit: Yes Status: Acute Assessment and plan: October 10. Continue therapy intervention. (3) Weakness Current Visit: Yes Status: Acute Assessment and plan: October 10. Continue therapy intervention. (4) History of aortic aneurysm repair Current Visit: Yes Status: Acute Assessment and plan: October 10. Abdominal/pelvic CT showed proximal aortic aneurysmal dilatation measuring up to 4.2 cm. He had bilateral common iliac artery dilatation distal to the graft measuring 4.4 cm on the left and 2.6 cm on the right. 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 He declined offer of transfer for vascular surgery to further evaluate. (5) Sinus drainage Current Visit: Yes Status: Acute Assessment and plan: October 10. Head CT was unremarkable. (6) Anemia Current Visit: Yes Status: Acute Assessment and plan: October 10. Hemoglobin has decreased to 11.4. Order anemia testing. October 11. Anemia testing showed iron 81, transferrin saturation 34%, transferrin 170, ferritin 524, B12 160, and folate 12.1. He will be given a B12 injection and start oral B12 supplement. Hemoglobin stable today at 11.6. October 12. Recheck labs in a.m. Qualifiers: Anemia type: unspecified type Qualified Code(s): D64.9 - Anemia, unspecified (7) Lung mass Current Visit: Yes Status: Acute Assessment and plan: October 10. Chest CT showed 2.9 cm right upper lung mass suspicious for primary lung cancer. The patient declined offer to transfer for further evaluation/treatment. (8) Nausea & vomiting Current Visit: Yes Status: Acute Assessment and plan: October 12. Order Zofran and Pepto-Bismol as needed. Qualifiers: Vomiting type: unspecified Vomiting Intractability: non-intractable Qualified Code(s): R11.2 - Nausea with vomiting, unspecified - Subjective Interval history: October 10. He has no new complaints and feels better overall. I discussed the chest CT report with him yesterday afternoon and offered him transfer to another facility for further evaluation of the lung mass. He stated he "wanted to think about it". He states today he does not wish referral for aggressive treatment. October 11. He has no new complaints. October 12. He has nausea and vomited earlier today. He does not have significant pain. October 13. He has no new complaints. - Constitutional Vitals: Temp Pulse Resp BP Pulse Ox 97.7 F 70 16 150/89 92 10/13/18 16:46 10/13/18 16:46 10/13/18 16:46 10/13/18 16:46 10/13/18 16:46 Exam: He is sitting in a chair at bedside resting comfortably. His affect is bright and cheerful. I reviewed his medications and lab results. Internal Medicine: Result - Labs CBC & Chem 7: 10/13/18 05:11 10/13/18 05:11 Labs: Short CBC 10/13/18 Range/Units 05:11 WBC 10.7 (4.3-11.1) K/mcL Hgb 12.0 L (12.9-16.9) g/dL Hct 37.4 L (37.5-50.1) % Plt Count 254 (140-400) K/mcL Neutrophils # 7.6 (1.6-8.9) K/mcL BMP 10/13/18 05:11 Sodium 136 Potassium 4.0 Chloride 100 Carbon Dioxide 31 H BUN 23 Creatinine 0.88 Glucose 97 Calcium 8.8 - ABG Interpretation ABG results: ABG ABG pH 7.39 pH Units (7.32-7.45) 10/08/18 21:07 ABG pCO2 43 mmHg (35-45) 10/08/18 21:07 ABG pO2 51 mmHg (85-104) L 10/08/18 21:07 ABG O2 Saturation 85 % (95-98) L 10/08/18 21:07 - VTE Documentation of Mechanical Device: Graduated compression elastic hosiery Consult Discharge Plan - Plan Referrals: NONE,PCP [Primary Care Provider] - 1 week
[2018-10-14] MEDS: Levofloxacin 750 MG/150 ML 750 MG/150 ML BAG IVPB SCH (08:33)
[2018-10-14] MEDS: Lactobacillus 1 EACH CAP.SPRINK PO SCH ×2 (08:33→20:34)
[2018-10-14] MEDS: Cyanocobalamin (B-12) 1,000 MCG TABLET PO SCH (08:33)
[2018-10-14] MEDS: Aspirin 81 MG TAB.CHEW PO SCH (08:33)
--- NOTE | 2018-10-14 15:49 | Internal Med Progress Note ---
Date of Encounter: 10/14/18 Time of Encounter: 15:40 - Assessment and plan (1) Acute exacerbation of chronic obstructive airways disease Current Visit: Yes Status: Acute Assessment and plan: October 10. Continue Levaquin and DuoNebs. Add lactobacillus. Anticipate discharge home tomorrow if stable. October 11. Patient has agreed to go to a local SNF for ongoing care needs. Continue Levaquin and DuoNebs with lactobacillus. (2) Parkinsons disease Current Visit: Yes Status: Acute Assessment and plan: October 10. Continue therapy intervention. (3) Weakness Current Visit: Yes Status: Acute Assessment and plan: October 10. Continue therapy intervention. (4) History of aortic aneurysm repair Current Visit: Yes Status: Acute Assessment and plan: October 10. Abdominal/pelvic CT showed proximal aortic aneurysmal dilatation measuring up to 4.2 cm. He had bilateral common iliac artery dilatation distal to the graft measuring 4.4 cm on the left and 2.6 cm on the right. 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 He declined offer of transfer for vascular surgery to further evaluate. (5) Sinus drainage Current Visit: Yes Status: Acute Assessment and plan: October 10. Head CT was unremarkable. (6) Anemia Current Visit: Yes Status: Acute Assessment and plan: October 10. Hemoglobin has decreased to 11.4. Order anemia testing. October 11. Anemia testing showed iron 81, transferrin saturation 34%, transferrin 170, ferritin 524, B12 160, and folate 12.1. He will be given a B12 injection and start oral B12 supplement. Hemoglobin stable today at 11.6. October 12. Recheck labs in a.m. October 14. Hemoglobin increased to 12.0. Continue to monitor periodically. Qualifiers: Anemia type: unspecified type Qualified Code(s): D64.9 - Anemia, unspecified (7) Lung mass Current Visit: Yes Status: Acute Assessment and plan: October 10. Chest CT showed 2.9 cm right upper lung mass suspicious for primary lung cancer. The patient declined offer to transfer for further evaluation/sergio atment. (8) Nausea & vomiting Current Visit: Yes Status: Acute Assessment and plan: October 12. Order Zofran and Pepto-Bismol as needed. Qualifiers: Vomiting type: unspecified Vomiting Intractability: non-intractable Qualified Code(s): R11.2 - Nausea with vomiting, unspecified - Subjective Interval history: October 10. He has no new complaints and feels better overall. I discussed the chest CT report with him yesterday afternoon and offered him transfer to another facility for further evaluation of the lung mass. He stated he "wanted to think about it". He states today he does not wish referral for aggressive treatment. October 11. He has no new complaints. October 12. He has nausea and vomited earlier today. He does not have significant pain. October 13. He has no new complaints. October 14. He has no new complaints. - Constitutional Vitals: Temp Pulse Resp BP Pulse Ox 97.6 F 51 16 115/70 94 10/14/18 10:21 10/14/18 10:21 10/14/18 10:21 10/14/18 10:10/14/18 10:21 Exam: He is sitting on the side of bed resting comfortably. His affect is bright and cheerful. I reviewed his medications and lab results. Internal Medicine: Result - Labs CBC & Chem 7: 10/13/18 05:11 10/13/18 05:11 - ABG Interpretation ABG results: ABG ABG pH 7.39 pH Units (7.32-7.45) 10/08/18 21:07 ABG pCO2 43 mmHg (35-45) 10/08/18 21:07 ABG pO2 51 mmHg (85-104) L 10/08/18 21:07 ABG O2 Saturation 85 % (95-98) L 10/08/18 21:07 - VTE Documentation of Mechanical Device: Graduated compression elastic hosiery Consult Discharge Plan - Plan Referrals: NONE,PCP [Primary Care Provider] - 1 week
[2018-10-15] MEDS: Aspirin 81 MG TAB.CHEW PO SCH (09:04)
[2018-10-15] MEDS: Cyanocobalamin (B-12) 1,000 MCG TABLET PO SCH (09:05)
[2018-10-15] MEDS: Levofloxacin 750 MG/150 ML 750 MG/150 ML BAG IVPB SCH (09:05)
[2018-10-15] MEDS: Lactobacillus 1 EACH CAP.SPRINK PO SCH (09:05)
--- NOTE | 2018-10-15 17:16 | Internal Med Progress Note ---
Date of Encounter: 10/15/18 Time of Encounter: 17:10 - Assessment and plan (1) Acute exacerbation of chronic obstructive airways disease Current Visit: Yes Status: Acute Assessment and plan: October 10. Continue Levaquin and DuoNebs. Add lactobacillus. Anticipate discharge home tomorrow if stable. October 11. Patient has agreed to go to a local SNF for ongoing care needs. Continue Levaquin and DuoNebs with lactobacillus. October 15. Discontinue Levaquin and lactobacillus. (2) Parkinsons disease Current Visit: Yes Status: Acute Assessment and plan: October 10. Continue therapy intervention. (3) Weakness Current Visit: Yes Status: Acute Assessment and plan: October 10. Continue therapy intervention. (4) History of aortic aneurysm repair Current Visit: Yes Status: Acute Assessment and plan: October 10. Abdominal/pelvic CT showed proximal aortic aneurysmal dilatation measuring up to 4.2 cm. He had bilateral common iliac artery dilatation distal to the graft measuring 4.4 cm on the left and 2.6 cm on the right. 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 He declined offer of transfer for vascular surgery to further evaluate. (5) Sinus drainage Current Visit: Yes Status: Acute Assessment and plan: October 10. Head CT was unremarkable. (6) Anemia Current Visit: Yes Status: Acute Assessment and plan: October 10. Hemoglobin has decreased to 11.4. Order anemia testing. October 11. Anemia testing showed iron 81, transferrin saturation 34%, transferrin 170, ferritin 524, B12 160, and folate 12.1. He will be given a B12 injection and start oral B12 supplement. Hemoglobin stable today at 11.6. October 12. Recheck labs in a.m. October 14. Hemoglobin increased to 12.0. Continue to monitor periodically. Qualifiers: Anemia type: unspecified type Qualified Code(s): D64.9 - Anemia, unspecified (7) Lung mass Current Visit: Yes Status: Acute Assessment and plan: October 10. Chest CT showed 2.9 cm right upper lung mass suspicious for primary lung cancer. The patient declined offer to transfer for further evaluation/treatment. (8) Nausea & vomiting Current Visit: Yes Status: Acute Assessment and plan: October 12. Order Zofran and Pepto-Bismol as needed. Qualifiers: Vomiting type: unspecified Vomiting Intractability: non-intractable Qualified Code(s): R11.2 - Nausea with vomiting, unspecified - Subjective Interval history: October 10. He has no new complaints and feels better overall. I discussed the chest CT report with him yesterday afternoon and offered him transfer to another facility for further evaluation of the lung mass. He stated he "wanted to think about it". He states today he does not wish referral for aggressive treatment. October 11. He has no new complaints. October 12. He has nausea and vomited earlier today. He does not have significant pain. October 13. He has no new complaints. October 14. He has no new complaints. October 15. He has no new complaints. - Constitutional Vitals: Temp Pulse Resp BP Pulse Ox 98.4 F 70 19 124/64 94 10/15/18 16:10 10/15/18 16:10 10/15/18 16:10 10/15/18 16:10 10/15/18 16:10 Exam: He is resting comfortably in a chair at bedside and appears in no acute distress. His affect is bright and cheerful. I reviewed his medications and past lab results. He feels his appetite has improved. Internal Medicine: Result - Labs CBC & Chem 7: 10/13/18 05:11 10/13/18 05:11 - ABG Interpretation ABG results: ABG ABG pH 7.39 pH Units (7.32-7.45) 10/08/18 21:07 ABG pCO2 43 mmHg (35-45) 10/08/18 21:07 ABG pO2 51 mmHg (85-104) L 10/08/18 21:07 ABG O2 Saturation 85 % (95-98) L 10/08/18 21:07 - VTE Documentation of Mechanical Device: Graduated compression elastic hosiery Consult Discharge Plan - Plan Referrals: NONE,PCP [Primary Care Provider] - 1 week
[2018-10-16] MEDS: Cyanocobalamin (B-12) 1,000 MCG TABLET PO SCH (08:49)
[2018-10-16] MEDS: Aspirin 81 MG TAB.CHEW PO SCH (08:49)
[2018-10-16 14:18] VITALS: BP 125/56
--- NOTE | 2018-10-16 15:16 | Discharge Summary ---
Date of Encounter: 10/16/18 Time of Encounter: 15:05 - Discharge Diagnosis (1) Acute exacerbation of chronic obstructive airways disease Priority: Primary Status: Acute (2) Lung mass Priority: Secondary Status: Acute (3) Parkinsons disease Priority: Secondary Status: Acute (4) Weakness Priority: Secondary Status: Acute (5) History of aortic aneurysm repair Priority: Secondary Status: Acute (6) Sinus drainage Priority: Secondary Status: Acute (7) Anemia Priority: Secondary Status: Acute Qualifiers: Anemia type: unspecified type Qualified Code(s): D64.9 - Anemia, unspecifie d (8) Nausea & vomiting Priority: Secondary Status: Resolved Qualifiers: Vomiting type: unspecified Vomiting Intractability: non-intractable Qualified Code(s): R11.2 - Nausea with vomiting, unspecified Hospital course: Mr. Graham is a 83 year old male who came to emergency room stating he had increased dyspnea over the past 2 days. He denies pain vomiting or diarrhea. He was evaluated in emergency room and was felt to have exacerbation of COPD. He was admitted to [facility] for ongoing care needs. Initial orders were written by the emergency room physician. I saw him on October 10 and performed a history and physical. CT of chest, abdomen and pelvis was done to further evaluate. There was a 2.9 cm right upper lung mass suspicious for primary lung cancer. The patient declined offer to transfer for further evaluation/treatment. Abdominal/pelvic CT showed proximal aortic aneurysmal dilatation measuring up to 4.2 cm. He had bilateral common iliac artery dilatation distal to the graft measuring 4.4 cm on the left and 2.6 cm on the right. 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 He declined offer of transfer for vascular surgery to further evaluate. Head CT done because of complaints of "sinus drainage" showed no worrisome pathology. Anemia testing showed iron 81, transferrin saturation 34%, transferrin 170, ferritin 524, B12 160, and folate 12.1. He was given a B12 injection and started on oral B12 supplement. His PCP can monitor labs. He had PT and OT evaluations with ongoing intervention. He made satisfactory progress and was able to ambulate over 400 feet by time of discharge. It was learned the patient had severe infestation of bedbugs at his home. Social service initiated inquiry into placement at SNF. There was delay in insurance determination of approval for this. On October 16 word was received insurance had denied placement for SNF. He will be discharged today and will go to his sister's house. He will follow with his PCP Dr. Rivero within 1 week. He will continue oxygen use 21/01. - Time Spent with Patient Total time spent providing and/or coordinating discharge services: - Discharge Medications Prescriptions: New Cyanocobalamin (B-12) [Vitamin B12] 1,000 mcg PO DAILY #30 tablet Continue Michael/Poly/HC *EAR* SUSP [Cortisporin *EAR* Susp] 4 ml LEFT EAR QID #1 drops.susp Discontinued Ciprofloxacin HCl [Cipro] 500 mg PO Q12H #20 tablet Home Medications: Michael/Poly/HC *EAR* SUSP [Cortisporin *EAR* Susp] 4 ml LEFT EAR QID #1 drops.susp 12/25/17 [Rx] Cyanocobalamin (B-12) [Vitamin B12] 1,000 mcg PO DAILY #30 tablet 10/16/18 [Rx] Allergies/Adverse Reactions: Allergy/AdvReac Type Severity Reaction Status Date / Time Unable to Assess Allergy Unverified 10/08/18 19:22 Date of admission: 10/09/18 13:30 Primary care physician: Gracie Rivero M.D. Consults: 10/10/18 10:37 Consult to Occupational Therapy [CONS] Routine Comment: Evaluate, develop and implement POC Reason for Consult: weakness Does patient have active BEDREST order?: No Is patient medically & hemodynamically stable?: Yes Patient assessed for mobility or mobilized this visit?: Yes Consult to Physical Therapy [CONS] Routine Comment: Evaluate, develop and implement POC Reason for Consult: weakness Does patient have active BEDREST order?: No Is patient medically & hemodynamically stable?: Yes Patient assessed for mobility or mobilized this visit?: Yes - Constitutional Vitals: Temp Pulse Resp BP Pulse Ox 97.9 F 69 16 125/56 94 10/16/18 14:13 10/16/18 14:13 10/16/18 14:13 10/16/18 14:13 10/16/18 14:13 - Patient Status Disposition: Home, Self-Care Condition: Fair - Discharge Instructions Follow Up With: Gracie Rivero MD [Partnered Physician] - 1 week - Diet and Activity Activity: ambulate only with your walker Diet: advance to your usual diet - VTE Documentation of Mechanical Device: Graduated compression elastic hosiery
== END 2018-10-16 14:55 | disposition home or self-care (01) | DRG 140 ==
LOC: EMEROOPIK 19:09 → INPPIK 19:09
PROVIDERS: ADMIT Internal Medicine; ATTEND Internal Medicine